=== PATIENT | male | born 1980 | race Caucasian/White ===

== ENCOUNTER → 2020-06-07 14:52 | Outpatient (BNVA) | payer BC, SELFPAY | PROVIDERS: PCP Internal Medicine; Visit Provider Internal Medicine Pulmonary Disease | DX: G47.33 Obstructive sleep apnea (adult) (pediatric) (principal) ==

== ENCOUNTER 2020-09-14 17:57 | Outpatient (REF) | payer BC, SELFPAY | END 2020-09-14 17:58 | disposition home or self-care (01) | LOC: HO.LNP 17:57 | PROVIDERS: Visit Provider Internal Medicine | DX: Z20.828 Contact with and (suspected) exposure to other viral communicable diseases (principal) | CPT/HCPCS: U0003 ==

== ENCOUNTER 2021-09-18 13:27 | Outpatient (REF) | payer BC, SELFPAY ==
[2021-09-18 13:49] LABS: COVID-19 Test Negative (Negative); IDNOW Serial# 9DD0AD1C
== END 2021-09-18 13:28 | disposition home or self-care (01) ==
LOC: HO.LNP 13:27
PROVIDERS: Visit Provider Internal Medicine
DX: Z20.822 Contact with and (suspected) exposure to COVID-19 (principal)
CPT/HCPCS: 87635

== ENCOUNTER 2021-10-01 12:19 | Outpatient (REF) | payer BC, SELFPAY ==
[2021-10-01 12:36] LABS: COVID-19 Test Positive (Negative)
== END 2021-10-01 12:20 | disposition home or self-care (01) ==
LOC: HO.LNP 12:19
PROVIDERS: Visit Provider Internal Medicine
DX: Z20.822 Contact with and (suspected) exposure to COVID-19 (principal)
CPT/HCPCS: 87635

== ENCOUNTER 2022-01-06 10:21 | Outpatient (REF) | payer BC, SELFPAY ==
--- NOTE | ~2022-01-06 | XR_ITS ---
EXAMINATION: XR CHEST CLINICAL INFORMATION: Cough and congestion COMPARISON: Previous chest x-ray November 2015 TECHNIQUE: 2 views of the chest were obtained. FINDINGS: The cardiac and mediastinal contours are normal. The lungs are clear. There is no pleural effusion or pneumothorax. Bony structures are unremarkable. XR/XR chest 2V IMPRESSION: Unremarkable examination.
== END 2022-01-06 10:22 | disposition home or self-care (01) ==
LOC: HO.XRAY 10:21
PROVIDERS: PCP Internal Medicine; Visit Provider Internal Medicine
DX: R05.9 Cough, unspecified (principal); R09.89 Other specified symptoms and signs involving the circulatory and respiratory systems
CPT/HCPCS: 71046

== ENCOUNTER 2022-01-22 12:05 | Outpatient (REF) | payer BC, SELFPAY ==
[2022-01-22 13:27] LABS: MANUAL DIFF FLAG NO
[2022-01-22 13:38] LABS: Basophils Absolute Auto 0.1 X10*3/uL (0.0-0.2); Basophils Percent Auto 1.2 % (0-2); Eosinophils Absolute Auto 0.1 X10*3/uL (0.0-0.4); Eosinophils Percent Auto 2.2 % (0-4); Hematocrit 45.2 % (42.0-52.0); Hemoglobin 15.9 g/dl (14.0-18.0); Imm Gran Abs Auto 0.01 X10*3/uL (0.00-0.03); Imm Gran Pct Auto 0.2 % (0.0-0.4); Lymphocytes Absolute Auto 2.2 X10*3/uL (1.2-4.9); Lymphocytes Percent Auto 43.5 % (20-40); Mean Corpuscular HGB Conc 35.2 g/dl (31.0-36.0); Mean Corpuscular Hemoglobin 32.1 pg (27.0-33.0); Mean Corpuscular Volume 91.3 fL (80.0-98.0); Mean Platelet Volume 11.4 fL (9.4-12.4); Monocytes Absolute Auto 0.5 X10*3/uL (0.1-1.2); Neutrophils Absolute Auto 2.2 x10*3/uL (2.0-8.3); Neutrophils Percent Auto 42.9 % (45-73); Platelet Count 294 X10*3/uL (160-400); Red Blood Count 4.95 X10*6/uL (4.60-5.80); Red Cell Distribution Width 11.7 % (11.0-16.0); White Blood Count 5.1 X10*3/uL (4.8-10.8)
[2022-01-22 13:43] LABS: Anion Gap 13 (12-20); Blood Urea Nitrogen 14 mg/dL (9-16); Calcium 10.3 mg/dL (8.4-10.2); Carbon Dioxide 31 mmol/L (22-29); Chloride 101 mmol/L (96-108); Estimated Glomerular Filt Rate > 60; Glucose Random 64 mg/dL (60-115); Potassium 4.7 mmol/L (3.3-5.1); Sodium 140 mmol/L (135-145)
[2022-01-22 13:56] LABS: Estimated Average Glucose 143 mg/dL; Hemoglobin A1c % 6.6 %
[2022-01-22 14:05] LABS: Syphilis Screen Nonreactive (Nonreactive)
[2022-01-22 14:37] LABS: Creatinine Urine 94.72 mg/dL; Microalbum/Creatinine Ratio Ur 5.2 ug/mg cr
[2022-01-22 19:03] LABS: CT PCR NOT DETECTED (Not Detect.); NG PCR NOT DETECTED (Not Detect.)
[2022-01-23 08:53] LABS: HIV AB/AG Nonreactive (Nonreactive); HIV Num 1 0.06 S/CO (0.00-0.99)
== END 2022-01-22 12:06 | disposition home or self-care (01) ==
LOC: HO.10HDL 12:05
PROVIDERS: Visit Provider Internal Medicine
DX: Z11.4 Encounter for screening for human immunodeficiency virus [HIV] (principal); Z11.3 Encounter for screening for infections with a predominantly sexual mode of transmission; E11.9 Type 2 diabetes mellitus without complications; Z79.4 Long term (current) use of insulin
CPT/HCPCS: 80048; 82043; 83036; 85025; 86780; 87389; 87491; 87591

== ENCOUNTER 2022-11-25 07:39 | Outpatient (REF) | payer OTHER, SELFPAY ==
[2022-11-25 10:46] LABS: MANUAL DIFF FLAG NO
[2022-11-25 10:55] LABS: Basophils Absolute Auto 0.1 X10*3/uL (0.0-0.2); Basophils Percent Auto 1.2 % (0-2); Eosinophils Absolute Auto 0.1 X10*3/uL (0.0-0.4); Eosinophils Percent Auto 2.6 % (0-4); Hemoglobin 17.1 g/dl (14.0-18.0); Imm Gran Abs Auto 0.01 X10*3/uL (0.00-0.03); Imm Gran Pct Auto 0.2 % (0.0-0.4); Lymphocytes Percent Auto 47.7 % (20-40); Mean Corpuscular HGB Conc 34.9 g/dl (31.0-36.0); Mean Corpuscular Hemoglobin 32.4 pg (27.0-33.0); Mean Corpuscular Volume 92.8 fL (80.0-98.0); Mean Platelet Volume 11.4 fL (9.4-12.4); Monocytes Absolute Auto 0.3 X10*3/uL (0.1-1.2); Neutrophils Absolute Auto 1.8 x10*3/uL (2.0-8.3); Neutrophils Percent Auto 41.3 % (45-73); Platelet Count 235 X10*3/uL (160-400); Red Blood Count 5.28 X10*6/uL (4.60-5.80); Red Cell Distribution Width 11.4 % (11.0-16.0); White Blood Count 4.3 X10*3/uL (4.8-10.8)
[2022-11-25 11:09] LABS: Appearance Urine Clear; Color Urine Dark Yellow; Glucose Urine UA >=1000 mg/dL (Negative); Leukocyte Esterase Urine Negative (Negative); Nitrite Urine Negative (Negative); Specific Gravity - Urine >= 1.030 (1.005-1.025); UMIC TRIGGER UA YES; Urine Blood Negative (Negative); Urine Ketones Trace mg/dL (Negative); Urine Protein Negative (Neg-Trace)
[2022-11-25 11:16] LABS: Bacteria Urine None Seen (None Seen); Hyaline Casts Urine 0-2 /LPF (0-2); RBC Urine 0-2 /HPF (0-2); Squamous Epithelial Cell Urine 0-2 /HPF (0-2); WBC Urine 0-5 /HPF (0-5)
[2022-11-25 11:24] LABS: Estimated Average Glucose 151 mg/dL; Hemoglobin A1c % 6.9 %
[2022-11-25 11:48] LABS: Alanine Aminotransferase 24 U/L (0-40); Albumin Level 4.3 g/dL (3.5-5.0); Alkaline Phosphatase 66 U/L (39-117); Anion Gap 14 (12-20); Aspartate Amino Transferase 24 U/L (5-37); Bilirubin Total 0.5 mg/dL (0.0-1.0); Blood Urea Nitrogen 12 mg/dL (9-16); Calcium 9.4 mg/dL (8.4-10.2); Carbon Dioxide 30 mmol/L (22-29); Chloride 103 mmol/L (96-108); Cholesterol 179 mg/dL; Estimated Glomerular Filt Rate > 60; Glucose Fasting 183 mg/dL (60-99); HDL Cholesterol 82 mg/dL; LDL Cholesterol Calculated 78 mg/dl; Potassium 4.7 mmol/L (3.3-5.1); Sodium 142 mmol/L (135-145); Total Protein 7.2 g/dL (6.5-8.0); Triglycerides 97 mg/dL
[2022-11-25 11:50] LABS: Creatinine Urine 171.84 mg/dL; Microalbum/Creatinine Ratio Ur 5.2 ug/mg cr
[2022-11-25 12:34] LABS: CT PCR NOT DETECTED (Not Detect.); NG PCR NOT DETECTED (Not Detect.)
[2022-11-26 05:25] LABS: ~HepC Num1 0.22 S/CO (0.00-0.79); ~Hepatitis C Antibody Nonreactive (Nonreactive)
[2022-11-27 18:23] LABS: HIV RNA PCR Qn Copies NOT DETECTED copies/mL (NOT DETECTED); HIV RNA PCR Qn Log Copies NOT DETECTED (NOT DETECTED)
[2022-11-30 20:43] LABS: Testosterone, Total 433 ng/dL (250-1100)
== END 2022-11-25 07:40 | disposition home or self-care (01) ==
LOC: HO.10HDL 07:39
PROVIDERS: Visit Provider Internal Medicine
DX: Z00.00 Encounter for general adult medical examination without abnormal findings (principal); E11.9 Type 2 diabetes mellitus without complications; Z79.4 Long term (current) use of insulin; Z11.4 Encounter for screening for human immunodeficiency virus [HIV]; Z20.2 Contact with and (suspected) exposure to infections with a predominantly sexual mode of transmission
CPT/HCPCS: 0353U; 36415; 80053; 80061; 81001; 81003; 82043; 83036; 84402; 84403; 85025; 86803; 87536

== ENCOUNTER 2023-06-08 10:21 | Outpatient (REF) | payer OTHER, SELFPAY ==
--- NOTE | ~2023-06-08 | XR_ITS ---
EXAMINATION: XR CHEST CLINICAL INFORMATION: Reason for Exam cough COMPARISON: Chest radiograph 01/06/2022 TECHNIQUE: 2 views of the chest FINDINGS: Lines and tubes: None. Clear lungs. No pleural effusion. No pneumothorax. Normal cardiomediastinal silhouette. XR/XR chest 2V IMPRESSION: * Clear lungs.
== END 2023-06-08 10:22 | disposition home or self-care (01) ==
LOC: HO.XRAY 10:21
PROVIDERS: PCP Internal Medicine; Visit Provider Internal Medicine
DX: R05.9 Cough, unspecified (principal)
CPT/HCPCS: 71046

== ENCOUNTER 2023-11-12 10:01 | Outpatient (REF) | payer OTHER, SELFPAY ==
[2023-11-12 11:38] LABS: MANUAL DIFF FLAG NO
[2023-11-12 11:47] LABS: Basophils Absolute Auto 0.1 X10*3/uL (0.0-0.2); Basophils Percent Auto 1.2 % (0-2); Eosinophils Absolute Auto 0.2 X10*3/uL (0.0-0.4); Eosinophils Percent Auto 3.1 % (0-4); Hematocrit 45.1 % (42.0-52.0); Hemoglobin 16.1 g/dl (14.0-18.0); Lymphocytes Absolute Auto 2.3 X10*3/uL (1.2-4.9); Lymphocytes Percent Auto 47.4 % (20-40); Mean Corpuscular HGB Conc 35.7 g/dl (31.0-36.0); Mean Corpuscular Hemoglobin 32.5 pg (27.0-33.0); Mean Corpuscular Volume 91.1 fL (80.0-98.0); Monocytes Absolute Auto 0.4 X10*3/uL (0.1-1.2); Monocytes Percent Auto 8.1 % (2-11); Neutrophils Absolute Auto 1.9 x10*3/uL (2.0-8.3); Neutrophils Percent Auto 40.2 % (45-73); Platelet Count 252 X10*3/uL (160-400); Red Blood Count 4.95 X10*6/uL (4.60-5.80); Red Cell Distribution Width 11.4 % (11.0-16.0); White Blood Count 4.8 X10*3/uL (4.8-10.8)
[2023-11-12 11:49] LABS: Estimated Average Glucose 146 mg/dL; Hemoglobin A1c % 6.7 % (<6.0)
[2023-11-12 11:59] LABS: Alanine Aminotransferase 23 U/L (0-40); Albumin Level 4.3 g/dL (3.5-5.0); Alkaline Phosphatase 72 U/L (39-117); Anion Gap 10 (12-20); Aspartate Amino Transferase 22 U/L (5-37); Bilirubin Total 0.5 mg/dL (0.0-1.0); Blood Urea Nitrogen 13 mg/dL (9-16); Calcium 9.5 mg/dL (8.4-10.2); Carbon Dioxide 30 mmol/L (22-29); Chloride 103 mmol/L (96-108); Cholesterol 181 mg/dL (<200); Estimated Glomerular Filt Rate > 60; Glucose Random 98 mg/dL (60-115); Potassium 4.1 mmol/L (3.3-5.1); Sodium 139 mmol/L (135-145); Total Protein 7.6 g/dL (6.5-8.0)
[2023-11-12 12:35] LABS: Creatinine Urine 184.84 mg/dL; Microalbum/Creatinine Ratio Ur 5.9 ug/mg cr (<30)
== END 2023-11-12 10:02 | disposition home or self-care (01) ==
LOC: HO.10HDL 10:01
PROVIDERS: Visit Provider Internal Medicine
DX: E11.9 Type 2 diabetes mellitus without complications (principal)
CPT/HCPCS: 36415; 80053; 82043; 82465; 82570; 83036; 85025

== ENCOUNTER 2024-01-28 11:45 | Outpatient (REF) | payer OTHER, SELFPAY ==
[2024-02-04 15:08] LABS: Testosterone, Free 51.5 pg/mL (35.0-155.0); Testosterone, Total 468 ng/dL (250-1100)
== END 2024-01-28 11:46 | disposition home or self-care (01) ==
LOC: HO.10HDL 11:45
PROVIDERS: Visit Provider Internal Medicine
DX: R53.83 Other fatigue (principal); E11.9 Type 2 diabetes mellitus without complications; Z79.4 Long term (current) use of insulin
CPT/HCPCS: 36415; 84402; 84403

== ENCOUNTER 2024-11-28 11:11 | Outpatient (REF) | payer OTHER, SELFPAY ==
[2024-11-28 15:06] LABS: Influenza A PCR NEGATIVE (Negative); Influenza B PCR NEGATIVE (Negative); Resp Syncy Virus RNA Qual PCR NEGATIVE (Negative); SARS COV2 PCR INHOUSE NEGATIVE (Negative)
== END 2024-11-28 11:12 | disposition home or self-care (01) ==
LOC: HO.LAB 11:11
PROVIDERS: Nurse Practitioner Family; PCP Internal Medicine
DX: J06.9 Acute upper respiratory infection, unspecified (principal)
CPT/HCPCS: 0241U

== ENCOUNTER 2024-11-28 11:11 | Outpatient (AMB) | payer OTHER, SELFPAY ==
--- NOTE | 2024-11-28 12:13 | MHC.OFFWIV ---
Intake Vital Signs 11/28/24 12:30 Weight 153 lb BP 140/80 H Blood Pressure Location Lt brachial Position Sitting Pulse 74 Pulse Source Pulse Oximeter Temp 98.4 F Temp Source Oral Pulse Oximetry (%) 93 Oxygen Delivery Method Room Air Intake Visit Reasons: EP sinus infection? Intake Note: Patient here for possible sinus infection, cough, low grade fevers, sneezing for about 2 weeks. Patient Tobacco Use Status: Never used Tobacco Allergies No Known Allergies Allergy (Verified 11/28/24 12:22) Do you need a note to return to daycare/school/sports/work: No HPI HPI Comments History of Present Illness Details 44 y/o male patient who presents to the walk in clinic with c/o URI symptoms for 2 weeks. Reports coughing, sneezing, chest congestion, low grade fevers and sinus pressure. He has been using Albuterol every 4 hours with good relief. [facility] Medical History (Updated 11/28/24 @ 12:24 by Karyna Garber NP) Acute respiratory disease Reactive airway disease Social History (Updated 06/07/20 @ 15:00 by Thania Victor MA) Patient Tobacco Use Status: Never used Tobacco Years Smoked: 12 years Review of Systems Const All systems reviewed & are unremarkable except as noted in HPI and below Physical Exam Vital Signs: Last Vital Signs Temp 98.4 F 11/28/24 12:30 Pulse 74 11/28/24 12:30 BP 140/80 H 11/28/24 12:30 Pulse Ox 93 11/28/24 12:30 Oxygen Delivery Method Room Air 11/28/24 12:30 Const General: cooperative and no acute distress Orientation/consciousness: patient oriented x3 HEENT Head: Yes normocephalic Ears: external ears normal and TM abnormal with fluid behind the TM bilateral General nose exam: Nasal discharge present Face and sinus: Yes sinuses nontender Mouth: moist mucous membranes Throat: Yes uvula midline Resp Effort & Inspection: normal respiratory effort and able to speak in complete sentences Auscultation: clear to auscultation bilaterally, no crackles, no rales, no rhonchi and no wheezes Cardio Heart sounds: S1 normal heart sound present and S2 normal heart sound present Neuro General: patient oriented x3 Assessment & Plan Assessment & Plan (1) Acute respiratory disease: Code(s): J06.9 - Acute upper respiratory infection, unspecified Plan: Ordered SARs Ordered Zpack Acetaminophne for pain/fever relief OTC cold relief remedies. Orders: Orders SARS-CoV2/FLU/RSV Today J06.9 - Acute upper respiratory infection, unspecified Medications: New azithromycin 500 mg PO DAILY 3 days 3 tabs 0RF J06.9 - Acute upper respiratory infection, unspecified Coding Level of Care Code Est Pt Level 4 (35686) Diagnoses Acute respiratory disease J06.9 Time Spent (min) 20
[2024-11-28 12:30] VITALS: BP 140/80; PULSE 74; TEMP 36.9; O2SAT 93
== END 2024-11-28 12:48 | disposition home or self-care (01) ==
PROVIDERS: PCP Internal Medicine; Visit Provider Nurse Practitioner Family
DX: J06.9 Acute upper respiratory infection, unspecified (principal)

== ENCOUNTER 2024-12-28 14:06 | Outpatient (AMB) | payer OTHER, SELFPAY ==
--- NOTE | 2024-12-28 14:15 | MHC.PC.OV ---
Vital Signs 12/28/24 14:38 Height 6 ft 1 in Weight 156 lb BMI 20.6 BP 122/76 Blood Pressure Location Lt brachial Position Sitting Pulse 76 Pulse Source Pulse Oximeter Temp 97.7 F Temp Source Axillary Pulse Oximetry (%) 99 Oxygen Delivery Method Room Air Intake Visit Reasons: Routine Talent Acquisition Coordinator Required: No Accompanied by: Self / Same As Patient Allergies No Known Allergies Allergy (Verified 12/28/24 14:18) Tobacco use date assessed: 12/28/24 Dental Screening Dental Screen Date: 12/28/24 Did you have a dental visit in the last 12 months?: Yes Did you have a dental problem in the last 6 months where you did not have access to dental care?: No [facility] Medical History (Updated 12/28/24 @ 15:04 by Jeff Macario MD) Major depression in complete remission Hyperlipidemia Type 1 diabetes mellitus Acute respiratory disease Reactive airway disease Family History (Updated 12/28/24 @ 14:43 by Alaina Nicholson MA) Mother No problems noted. Father No problems noted. Social History Housing: House Patient Tobacco Use Status: Former Tobacco user Years Smoked: 12 years e-Cigarette/Vaping Use: Former Use service: No Current occupational status: employed Cognitive needs: No Hearing needs: No Vision needs: Yes (reading glasses) Questionnaire PHQ-9 Over the last 2 weeks, how often have you been bothered by any of the following problems? 1. Little interest or pleasure in doing things: not at all 2. Feeling down, depressed, or hopeless: not at all 3. Trouble falling or staying asleep, or sleeping too much: not at all 4. Feeling tired or having little energy: not at all 5. Poor appetite or overeating: not at all 6. Feeling bad about yourself - or that you are a failure or have let yourself or your family down: not at all 7. Trouble concentrating on things, such as reading the newspaper or watching television: not at all 8. Moving or speaking so slowly that other people could have noticed. Or the opposite - being so fidgety or restless that you have been moving around a lot more than usual: not at all 9. Thoughts that you would be better off or of hurting yourself in some way: not at all Total score: 0 Depression Screening Interpretation: Negative Depression Screening Done: Yes Source: Developed by Drs. Haja Hearn, Racquel Duran, Miguel Morton and colleagues, with an educational luisa from [employer]. Thrive Questionnaire Date Thrive assessed: 12/28/24 I am a: Patient Within the past 12 months, did the food you bought not last and you didn't have the money to get more?: Never true Within the past 12 months, did you worry whether your food would run out before you got money to buy more?: Never true Do you have trouble paying for medicines?: No Do you have trouble getting transportation to medical appointments?: No Do you have trouble paying your heating and electricity bill?: No Do you have trouble taking care of your child, family member or friend?: No Do you have trouble with day-to-day activities such as bathing, preparing meals, shopping, managing finances, etc.?: No Are you currently unemployed and looking for a job?: No Are you interested in more education?: No Currently or been in a relationship where the following occur: No concerns reported THRIVE Score: 0 AUDIT C Alcohol Use Questionnaire (AUDIT-C) 1. How often do you have a drink containing alcohol?: Monthly or less 2. How many drinks containing alcohol do you have on a typical day when you are drinking?: 1 or 2 3. How often do you have six or more drinks on one occasion?: Less than monthly Total Score: 2 STU-7 AMB Questionnaire STU-7 Date STU - 7 assessed: 12/28/24 Feeling nervous, anxious, or on edge: 0 = Not at all Not being able to stop or control worryin = Not at all Worrying too much about different things: 0 = Not at all Trouble relaxin = Not at all Being so restless that it is hard to sit still: 0 = Not at all Becoming easily annoyed or irritable: 0 = Not at all Feeling afraid as if something awful might happen: 0 = Not at all Total STU-7 score (0-4 normal; 5-9 mild; 10-14 moderate; 15-21 severe): 0 Source: Developed by Racquel Marroquin Kurt Kroenke and colleagues, with an educational luisa from [employer]. Physical exam (Primary Care) Vital Signs: Last Vital Signs Temp 97.7 F 12/28/24 14:38 Pulse 76 12/28/24 14:38 BP 122/76 12/28/24 14:38 Pulse Ox 99 12/28/24 14:38 Oxygen Delivery Method Room Air 12/28/24 14:38 Care Plan Goal for BP management: BP in range BMI result Body Mass Index 20.6 Tobacco/Smoking Status: Tobacco use Status Tobacco use date assessed 12/28/24 12/28/24 14:19 Patient Tobacco Use Status Former Tobacco user 12/28/24 14:44 e-Cigarette/Vaping Use Former Use 12/28/24 14:44 PHQ-9: PHQ-9 Score PHQ-9: Total score 0 12/28/24 14:45 Depression Screening Interpretation: Negative Thrive Assessment: Date of Thrive Assessment Date Thrive assessed 12/28/24 12/28/24 14:19 Currently or been in a relationship where the following occur: No concerns reported Coding Level of Care Code New Pt Level 4 (44952) Complex EM visit Add On G2211 Diagnoses Type 1 diabetes mellitus E10.9 Hyperlipidemia E78.5 Major depression in complete remission F32.5 Assessment & Plan Assessment & Plan (1) Type 1 diabetes mellitus: Code(s): E10.9 - Type 1 diabetes mellitus without complications Category: Medical Plan: Does not see an temperature logging operator. Suggested SHANE inhibitor, he will consider it. Prescriptions filled (2) Hyperlipidemia: Code(s): E78.5 - Hyperlipidemia, unspecified Category: Medical Plan: Continue use of statins (3) Major depression in complete remission: Code(s): F32.5 - Major depressive disorder, single episode, in full remission Category: Medical Plan: Continue current medications Plan History of Present Illness The patient is a 44-year-old male presenting with Type 1 Diabetes Mellitus management and a new skin rash. He has a long history of diabetes, using both short and long-acting insulin to manage his condition. The last recorded hemoglobin A1c was 6.7% approximately one year ago. Currently, his insulin regimen involves a daily 30-unit dose of long-acting insulin and involves a sliding scale for short-acting insulin with meals. Additionally, he has dyslipidemia managed with simvastatin. Family medical history is notable for diabetes. The patient noticed a newly developed mildly itchy rash near the underarm area today and suspects irritation from deodorant use, though no recent changes to deodorant products have been made. 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 - Exercise: Engaged in [employer] until August, planning to resume shortly. - Smoking: Former smoker. - Functional Status: Fully functional, able to perform daily activities. - Nutrition: Adapts insulin dosing based on meal carbohydrate content. Review of Systems - Endocrine: Reports Type 1 Diabetes Mellitus. - Dermatologic: Reports mildly itchy rash near the underarm area. - Eyes: Denies issues; sees an eye doctor regularly for retinal scans. - Musculoskeletal: Denies recent exercise; plans to resume CrossFit. - Social: Former smoker; denies current tobacco use. - Respiratory: Denies low blood sugar episodes; well-managed. Physical Exam General: Cooperative and healthy appearing Nutritional Appearance: Well nourished Orientation/consciousness: Patient oriented x3 Limitations: No limitations Head: Normal to inspection General: Appearance normal, both eyes and all related structures Neck: Normal visual inspection Chest: Normal palpation of entire chest wall Respiratory: N ormal respiratory effort Neurology: Patient oriented x3, fully functional, able to do all activities Results - Labs: Hemoglobin A1c last measured at 6.7% approximately one year ago. - Screenings: Cologuard was negative. Plan I will continue the patient's current management plan for Type 1 Diabetes with his established insulin routine, refilling prescriptions as needed. I am prescribing simvastatin for dyslipidemia. An updated hemoglobin A1c and microalbumin urine test will be conducted to evaluate kidney function. For the rash, I will provide clotrimazole cream and recommend careful hygiene. Given the new sexual partner, a full STD panel will be ordered. Regular follow-up on blood glucose control and continuous eye examinations are crucial for ongoing management. Patient was informed and verbally consented to the use of an ambient scribe for clinic note documentation during this visit. Discussion Notes I discussed maintaining his current insulin regimen for his Type 1 Diabetes, emphasizing consistent blood glucose monitoring. We addressed the management of dyslipidemia with simvastatin and the need for ongoing monitoring of his kidney function. Given his new rash, I provided a prescription for clotrimazole cream and explained its application. I advised overall good hygiene practices. For preventive care, given he is seeing a new sexual partner, I recommended a complete STD screening to include tests for gonorrhea, chlamydia, syphilis, and HIV to ensure his health status. We discussed the importance of regular eye examinations and the continuation of exercise in doo as he had previously engaged. Cologuard was noted to be negative. Patient Instructions - Continue current insulin regimen and monitor blood sugar levels regularly. - Use the prescribed clotrimazole cream on the rash area. - Undergo the recommended STD screening tests. - Maintain regular eye check-ups and engage in physical activity as tolerated. - Stay up-to-date with prescribed medications and refills. - Report any changes in symptoms or new concerns immediately. Orders: Orders Complete Blood Count no Diff Today E10.9 - Type 1 diabetes mellitus without complications, E78.5 - Hyperlipidemia, unspecified, F32.5 - Major depressive disorder, single episode, in full remission, Z11.9 - Encounter for screening for infectious and parasitic diseases, unspecified Liver Panel Today E10.9 - Type 1 diabetes mellitus without complications, E78.5 - Hyperlipidemia, unspecified, F32.5 - Major depressive disorder, single episode, in full remission, Z11.9 - Encounter for screening for infectious and parasitic diseases, unspecified HIV Ab/Ag Today E10.9 - Type 1 diabetes mellitus without complications, E78.5 - Hyperlipidemia, unspecified, F32.5 - Major depressive disorder, single episode, in full remission, Z11.9 - Encounter for screening for infectious and parasitic diseases, unspecified Basic Metabolic Panel Today E10.9 - Type 1 diabetes mellitus without complications, E78.5 - Hyperlipidemia, unspecified, F32.5 - Major depressive disorder, single episode, in full remission, Z11.9 - Encounter for screening for infectious and parasitic diseases, unspecified Lipid Panel Today E10.9 - Type 1 diabetes mellitus without complications, E78.5 - Hyperlipidemia, unspecified, F32.5 - Major depressive disorder, single episode, in full remission, Z11.9 - Encounter for screening for infectious and parasitic diseases, unspecified Thyroid Stimulating Hormone Today E10.9 - Type 1 diabetes mellitus without complications, E78.5 - Hyperlipidemia, unspecified, F32.5 - Major depressive disorder, single episode, in full remission, Z11.9 - Encounter for screening for infectious and parasitic diseases, unspecified Hemoglobin A1c Today E10.9 - Type 1 diabetes mellitus without complications, E78.5 - Hyperlipidemia, unspecified, F32.5 - Major depressive disorder, single episode, in full remission, Z11.9 - Encounter for screening for infectious and parasitic diseases, unspecified Microalbumin, Random (w Creat) Today E10.9 - Type 1 diabetes mellitus without complications, E78.5 - Hyperlipidemia, unspecified, F32.5 - Major depressive disorder, single episode, in full remission, Z11.9 - Encounter for screening for infectious and parasitic diseases, unspecified UA and rflx microscopic Today E10.9 - Type 1 diabetes mellitus without complications, E78.5 - Hyperlipidemia, unspecified, F32.5 - Major depressive disorder, single episode, in full remission, Z11.9 - Encounter for screening for infectious and parasitic diseases, unspecified CT NG by PCR Today E10.9 - Type 1 diabetes mellitus without complications, E78.5 - Hyperlipidemia, unspecified, F32.5 - Major depressive disorder, single episode, in full remission, Z11.9 - Encounter for screening for infectious and parasitic diseases, unspecified Syphilis Screen Today E10.9 - Type 1 diabetes mellitus without complications, E78.5 - Hyperlipidemia, unspecified, F32.5 - Major depressive disorder, single episode, in full remission, Z11.9 - Encounter for screening for infectious and parasitic diseases, unspecified Medications: New tadalafil (Cialis) 5 mg PO DAILY 30 tabs 0RF insulin glargine 30 units (0.3 mL) subcut BEDTIME 15 mL 1RF insulin glargine-yfgn (Semglee (insulin glargine-yfgn)) 30 units (0.3 mL) subcut QPM 27 mL 1RF 90 days
[2024-12-28 14:38] VITALS: BP 122/76; PULSE 76; TEMP 36.5; O2SAT 99; BMI 20.6
--- OUTSIDE RECORDS SUMMARY | 2024-12-28 16:57 | XMS_ITS | Clinical Summary ---
Author Organization [address] [place] [address] Address [address] [place] [address] Phone Care Team Providers Care Compliance Clerk Name Role Phone Clair Arias Primary Care Provider + Allergies Active Allergy Reactions Criticality Noted Date Comments Pollen Extracts 11/22/2024 Medications insulin aspart (NovoLOG U-100 Insulin aspart) 100 unit/mL injection Inject 100 Units under the skin. 05/19/2021 Active insulin lispro 100 unit/mL injection 05/21/2024 Active simvastatin (ZOCOR) 10 mg tablet Take 1 tablet (10 mg total) by mouth. 05/22/2021 Active buPROPion XL (WELLBUTRIN XL) 150 mg 24 hr tablet 08/26/2024 Active loratadine (CLARITIN) 10 mg tablet Take 1 tablet (10 mg total) by mouth 1 (one) time each day. Active Active Problems Problem Noted Date Diagnosed Date Dupuytren's contracture of hand 11/22/2024 Diabetes 1.5, managed as type 1 (CMS/[facility] V24, CM S/HCC V28) 05/24/2021 Dupuytren's contracture 05/24/2021 Dysthymia 04/23/2015 Encounters Date Type Department Care Team Description 11/22/2024 2:30 PM EDT Office Visit Orthopedic Surgery - [address] [place] [address] Florence Walsh MD Dupuytren's contracture of hand (Primary Dx) from Last 3 Months Social History Tobacco Use Types Packs/Day Years Used Date Smoking Tobacco: Never Smokeless Tobacco: Never Alcohol Use Standard Drinks/Week Comments Yes 0 (1 standard drink = 0.6 oz pur e alcohol) Sex and Gender Information Value Date Recorded Sex Assigned at Not on file Legal Sex Male 11:29 AM EST Gender Identity Not on file Sexual Orientation Not on file Obstetrics History Last Filed Vital Signs Vital Sign Reading Time Taken Comments Blood Pressure - - Pulse - - Temperature - - Respiratory Rate - - Oxygen Saturation - - Inhaled Oxygen Concentration - - Weight 65.8 kg (145 lb) 11/22/2024 2:34 PM EDT Height 167.6 cm (5' 6 ) 11/22/2024 2:34 PM EDT Body Mass Index 23.4 11/22/2024 2:34 PM EDT Plan of Treatment Health Maintenance Due Date Last Done Comments Diabetes: Annual GFR (Glomerular Filtration Rate) 1979 Diabetes: Annual Foot Exam 1989 Diabetes: Annual Retina Eye Exam 1989 DTaP,Tdap,and Td Vaccines (1 - Tdap) 1998 Hepatitis B Vaccines (1 of 3 - 19+ 3-dose series) 1998 Cholesterol Screening (Lipid Panel) 08/05/2022 Colorectal Cancer Screening: Colonoscopy 08/05/2022 Depression Screening 08/05/2022 HIV Screening 08/05/2022 Hepatitis C Screening 08/05/2022 Social Influencers of Health Screening 08/05/2022 Diabetes: Annual Urine Albumin-Creatinine Ratio (uACR) 08/19/2022 Diabetes: Blood Sugar Control Test (HGBA1C) 08/19/2022 COVID-19 Vaccine Completed 06/24/2024, , 07/08/2022, Additional history exists Influenza Vaccine Completed 06/24/2024, , 07/08/2022, Additional history exists Pneumococcal Vaccine: Pediatrics (0 to 5 Years) and At-Risk Patients (6 to 64 Years) Completed 06/24/2024 HIB Vaccines Aged Out No longer eligi ble based on patient's age to complete this topic HPV Vaccines Aged Out No longer eligi ble based on patient's age to complete this topic Hepatitis A Vaccines Aged Out No long er eligible based on patient's age to complete this topic IPV Vaccines Aged Out No longer eligi ble based on patient's age to complete this topic MMR Vaccines Aged Out No longer eligi ble based on patient's age to complete this topic Meningococcal ACWY Vaccine Aged Out N o longer eligible based on patient's age to complete this topic Meningococcal B Vaccine Aged Out No l onger eligible based on patient's age to complete this topic RSV Immunization Patients Under 20 months Aged Out No longer eligible based on patient's age to complete this topic Varicella Vaccines Aged Out No longer eligible based on patient's age to complete this topic Insurance [employer] Care Teams Compliance Clerk Relationship Specialty Start Date End Date Clair Arias PA [address] [place] [address] PCP - General 12/01/22
== END 2024-12-28 15:02 | disposition home or self-care (01) ==
LOC: HO.HMCHD 14:06
PROVIDERS: PCP Internal Medicine; Visit Provider Internal Medicine
DX: E10.9 Type 1 diabetes mellitus without complications (principal); E78.5 Hyperlipidemia, unspecified; F32.5 Major depressive disorder, single episode, in full remission

== ENCOUNTER → 2024-12-28 14:06 | Outpatient (BNVA) | payer OTHER, SELFPAY | PROVIDERS: PCP Internal Medicine; Visit Provider Internal Medicine | DX: Z13.89 Encounter for screening for other disorder (principal) ==

== ENCOUNTER 2024-12-29 09:03 | Outpatient (REF) | payer OTHER, SELFPAY ==
--- OUTSIDE RECORDS SUMMARY | 2024-12-29 09:46 | XMS_ITS | Clinical Summary ---
Author Organization [address] [place] [address] Address [address] [place] [address] Phone Care Team Providers Care Information Writer Name Role Phone Clair Arias Primary Care [...] 11/22/2024 Diabetes 1.5, managed as type 1 (CMS/[facility] V24, CM S/HCC V28) 05/24/2021 Dupuytren's contracture 05/24/2021 Dysthymia 04/23/2015 Encounters Date Type Department Care Team Description 11/22/2024 2:30 PM EDT Office Visit Orthopedic Surgery - [address] [place] [address] Florence Walsh MD Dupuytren's contracture [...] complete this topic Insurance [employer] Care Teams Information Writer Relationship Specialty Start Date End Date Clair Arias PA [address] [place] [address] PCP - General 12/01/22
[2024-12-29 11:13] LABS: Hematocrit 41.9 % (42.0-52.0); Mean Corpuscular HGB Conc 35.8 g/dl (31.0-36.0); Mean Corpuscular Hemoglobin 32.8 pg (27.0-33.0); Mean Corpuscular Volume 91.7 fL (80.0-98.0); Mean Platelet Volume 10.7 fL (9.4-12.4); Platelet Count 220 X10*3/uL (160-400); Red Blood Count 4.57 X10*6/uL (4.60-5.80); Red Cell Distribution Width 11.4 % (11.0-16.0); White Blood Count 4.7 X10*3/uL (4.8-10.8)
[2024-12-29 11:20] LABS: Estimated Average Glucose 160 mg/dL; Hemoglobin A1C 210.5434 umol/L; Hemoglobin A1c % 7.2 % (<6.0)
[2024-12-29 11:22] LABS: Appearance Urine Clear; Color Urine Dark Yellow; Glucose Urine UA Negative (Negative); Leukocyte Esterase Urine Negative (Negative); Nitrite Urine Negative (Negative); PH 8.5 (5.0-9.0); Urine Blood Negative (Negative); Urine Ketones Negative (Negative); Urine Protein Trace mg/dL (Neg-Trace)
[2024-12-29 11:57] LABS: Creatinine Urine 127.68 mg/dL; Microalbumin Urine < 5.0 mg/L
[2024-12-29 12:06] LABS: Alanine Aminotransferase 37 U/L (0-40); Albumin Level 4.1 g/dL (3.5-5.0); Alkaline Phosphatase 79 U/L (39-117); Anion Gap 9 (12-20); Aspartate Amino Transferase 37 U/L (5-37); Bilirubin Direct 0.3 mg/dL (0.0-0.5); Bilirubin Total 0.6 mg/dL (0.0-1.0); Blood Urea Nitrogen 15 mg/dL (9-16); Calcium 9.5 mg/dL (8.4-10.2); Carbon Dioxide 34 mmol/L (22-29); Chloride 103 mmol/L (96-108); Cholesterol 185 mg/dL (<200); Estimated Glomerular Filt Rate > 60; Glucose Random 76 mg/dL (60-115); HDL Cholesterol 97 mg/dL (>40); LDL Cholesterol Calculated 68 mg/dL (<100); Potassium 4.2 mmol/L (3.3-5.1); Sodium 142 mmol/L (135-145); Total Protein 7.3 g/dL (6.5-8.0); Triglycerides 104 mg/dL (<150)
[2024-12-29 12:09] LABS: HIV AB/AG Nonreactive (Nonreactive); HIV Num 1 0.07 S/CO (0.00-0.99); Syphilis Screen Nonreactive (Nonreactive)
[2024-12-29 12:12] LABS: Thyroid Stimulating Hormone 0.82 uIU/mL (0.32-4.0)
[2024-12-29 13:09] LABS: CT PCR NOT DETECTED (Not Detect.); NG PCR NOT DETECTED (Not Detect.)
== END 2024-12-29 09:04 | disposition home or self-care (01) ==
LOC: HO.10HDL 09:03
PROVIDERS: Visit Provider Internal Medicine
DX: E10.9 Type 1 diabetes mellitus without complications (principal); E78.5 Hyperlipidemia, unspecified; F32.5 Major depressive disorder, single episode, in full remission; Z11.9 Encounter for screening for infectious and parasitic diseases, unspecified
CPT/HCPCS: 80048; 80061; 80076; 81003; 82570; 83036; 84443; 85027; 86780; 87389; 87491; 87591

== ENCOUNTER 2025-06-29 10:22 | Outpatient (AMB) | payer OTHER, SELFPAY ==
--- NOTE | 2025-06-29 10:26 | A.OFFPC_ITS ---
Vital Signs 06/29/25 10:32 Height 6 ft 0.99 in Weight 154 lb BMI 20.3 BP 128/74 Blood Pressure Location Lt brachial Position Sitting Respiration 18 Pulse 78 Pulse Source Pulse Oximeter Temp 98.6 F Temp Source Temporal Artery Scan Pulse Oximetry (%) 96 Oxygen Delivery Method Room Air Intake Visit Reasons: Physical Secret Code Expert Required: No Accompanied by: Self / Same As Patient Allergies No Known Allergies Allergy (Verified 06/29/25 10:26) Medication List - Last Reconciled 06/29/25 by Eliot Lackey MD albuterol sulfate 90 mcg/actuation 1 puff inhalation BID PRN bupropion HCl SR 150 mg PO BID insulin glargine (Lantus U-100 Insulin) 30 units (0.3 mL) subcut QPM 90 days insulin glargine-yfgn (Semglee (insulin glargine-yfgn)) 30 units (0.3 mL) subcut QPM insulin syr/ndl U100 half dilip As directed insulin syringe,safety needle (BD SafetyGlide Insulin Syringe) As directed simvastatin 10 mg PO DAILY Tobacco use date assessed: 12/28/24 Dental Screening Dental Screen Date: 12/28/24 HPI HPI Comments History of Present Illness Details The patient is a 45-year-old male presenting with management of Type 1 Diabetes Mellitus and routine follow-up. The patient has a longstanding history of Type 1 Diabetes Mellitus diagnosed during childhood. He currently manages his diabetes with insulin therapy, specifically taking short-acting insulin for meals and long-acting insulin, Lantus, once daily at 11:30 AM. He acknowledges variability in his blood glucose levels, noting they can fluctuate significantly; however, his Hemoglobin A1c levels are typically well controlled, with the most recent being 7.2%. There is an understanding that blood sugar control could be better managed, ideally lowering the A1c closer to 6-6.5%. The patient prefers using his current regimen and explicitly states a reluctance to switch to an insulin pump or continuous glucose monitoring device, despite discussions regarding the disadvantages of daily blood sugar fluctuations on long-term health. In addition to the diabetes management, the patient reports a stable history of depression, which is managed with bupropion. He notes a consistent benefit from bupropion, explaining it keeps his mood stable. He also has a history of hyperlipidemia, managed with simvastatin, with recent lab work showing satisfactory lipid levels including an LDL of 68 mg/dL. 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 Does not engage in sales. - Housing: Lives alone - Exercise: Regularly exercises, attends the gym after work - Tobacco Use: Former smoker, smoked fro m ages 17 to 29, currently does not smoke - Alcohol Use: Not discussed - Recreational Drug Use: Not discussed [facility] Medical History (Updated 06/29/25 @ 10:47 by Eliot Lackey MD) Major depression in complete remission Hyperlipidemia Type 1 diabetes mellitus Acute respiratory disease Reactive airway disease Family History (Updated 12/28/24 @ 14:43 by Alaina Nicholson MA) Mother No problems noted. Father No problems noted. Social History Housing: House Patient Tobacco Use Status: Former Tobacco user Years Smoked: 12 years e-Cigarette/Vaping Use: Former Use service: No Current occupational status: employed Current occupation: [employer] Cognitive needs: No Hearing needs: No Vision needs: Yes (reading glasses) Questionnaire Thrive Questionnaire Date Thrive assessed: 12/28/24 STU-7 AMB Questionnaire STU-7 Date STU - 7 assessed: 12/28/24 Source: Developed by Drs. Haja Hearn, Racquel Duran, Miguel Morton and colleagues, with an educational luisa from [employer]. Review of Systems Narrative - Endocrine: Reports variability in blood glucose levels - Respiratory: Denies routine use of albuterol inhaler, only uses during colds or infections - Gastrointestinal: Denies abdominal pain - General: Denies current issues with eating or bowel movements - Psychiatric: Reports stable mood with bupropion - Cardiovascular: Denies symptoms not discussed All systems reviewed & are unremarkable except as reviewed in HPI and above Physical exam (Primary Care) Vital Signs: Last Vital Signs Temp 98.6 F 06/29/25 10:32 Pulse 78 06/29/25 10:32 Resp 18 06/29/25 10:32 BP 128/74 06/29/25 10:32 Pulse Ox 96 06/29/25 10:32 Oxygen Delivery Method Room Air 06/29/25 10:32 BMI result Body Mass Index 20.3 Tobacco/Smoking Status: Tobacco use Status Tobacco use date assessed 12/28/24 06/29/25 10:28 Patient Tobacco Use Status Former Tobacco user 06/29/25 10:28 e-Cigarette/Vaping Use Former Use 06/29/25 10:28 Thrive Assessment: Date of Thrive Assessment Date Thrive assessed 12/28/24 06/29/25 10:28 Narrative General: Alert and oriented, Well nourished, No acute distress. Eye: Pupils are equal, round and reactive to light, Intact accommodation, Extraocular movements are intact, Normal conjunctiva, Vision unchanged. HENT: Normocephalic, Atraumatic, Tympanic membranes are clear, Normal hearing, Oral mucosa is moist, No pharyngeal erythema, Ear canals patent. Respiratory: Lungs CTA bilaterally, No wheeze, Respirations are non-labored. Cardiovascular: Regular rate, Regular rhythm, S1 auscultated, S2 auscultated, No murmur, Good pulses equal in all extremities, Normal peripheral perfusion, No edema. Gastrointestinal: Soft, Non-tender, Non-distended, Normal bowel sounds, No organomegaly. Musculoskeletal: Normal range of motion, Normal strength, No tenderness, No swelling, No deformity, Normal gait. Integumentary: Warm, Dry, [place], Intact. Neurologic: Alert, Oriented, Normal sensory, Normal motor function, No focal defects, Cranial Nerves II-XII are grossly intact, Normal deep tendon reflexes. Psychiatric: Cooperative, Appropriate mood & affect, Normal judgment. Coding Level of Care Code Est Pt Level 4 (47874) Complex EM visit Add On G2211 Diagnoses Type 1 diabetes mellitus without complication E10.9 Diabetes mellitus complication status: without complication Reactive airway disease without complication, unspecified asthma severity, unspecified whether persistent J45.909 Asthma severity: unspecified severity Asthma persistence: unspecified Asthma complication type: uncomplicated Other hyperlipidemia E78.49 Hyperlipidemia type: other hyperlipidemia Recurrent major depressive disorder, in full remission F33.42 Major depression recurrence: recurrent Assessment & Plan Assessment & Plan (1) Type 1 diabetes mellitus: Comment: - The patient manages diabetes with short-acting insulin and Lantus. Current regimen remains (Lantus & Semglee), emphasizing the need to lower A1c closer to 6-6.5%. - Patient discussed concerns about previous nighttime hypoglycemia; alteration to insulin timing has been helpful. - Considerations for insulin pump/CGM were declined; to proceed with current routine. - Plan to reassess A1c with lab today and revisit in six months. Code(s): E10.9 - Type 1 diabetes mellitus without complications Category: Medical Qualifiers: Diabetes mellitus complication status: without complication Qualified Code(s): E10.9 - Type 1 diabetes mellitus without complications (2) Reactive airway disease: Comment: - Continue Albuterol PRN Code(s): J45.909 - Unspecified asthma, uncomplicated Category: Medical Qualifiers: Asthma severity: unspecified severity Asthma persistence: unspecified Asthma complication type: uncomplicated Qualified Code(s): J45.909 - Unspecified asthma, uncomplicated (3) Hyperlipidemia: Comment: - Continued management with simvastatin; recent LDL levels satisfactory. Code(s): E78.5 - Hyperlipidemia, unspecified Category: Medical Qualifiers: Hyperlipidemia type: other hyperlipidemia Qualified Code(s): E78.49 - Other hyperlipidemia (4) Major depression in complete remission: Comment: - Continued management with bupropion beneficial in stabilizing mood. Code(s): F32.5 - Major depressive disorder, single episode, in full remission Category: Medical Qualifiers: Major depression recurrence: recurrent Qualified Code(s): F33.42 - Major depressive disorder, recurrent, in full remission Plan: Health Maintenance: - Plan for annual Hemoglobin A1c reassessment - Encouragement of exercise and diet plans to maintain current cholesterol levels and reduce risks related to Type 1 Diabetes Mellitus Patient was informed and verbally consented to the use of an ambient scribe for clinic note documentation during this visit. Plan I discussed with the patient the necessity to maintain optimal control of his diabetes to prevent long-term complications. The patient expressed satisfaction with his current regimen and prefers a non-invasive approach, declining to switch to an insulin pump or continuous glucose monitoring device. We talked about past issues with nocturnal hypoglycemia and adjustments made to avoid this. Continued management of depression with bupropion is yielding stable results for the patient. We discussed the patient's lipid levels and their man agement with simvastatin. Follow-up for a Hemoglobin A1c today and a six-month review has been planned. Orders: Orders Hemoglobin A1c Today E10.9 - Type 1 diabetes mellitus without complications Patient Instructions: - Continue current insulin regimen as discussed. - Monitor blood glucose levels as per your usual routine. - Take bupropion and simvastatin as prescribed. - Return for A1c testing today and follow up in six months. - Continue exercise routine and healthy diet.
[2025-06-29 10:32] VITALS: BP 128/74; PULSE 78; RESP 18; TEMP 37; O2SAT 96; BMI 20.3
--- OUTSIDE RECORDS SUMMARY | 2025-06-29 12:21 | XMS_ITS | Clinical Summary ---
Author Organization [address] [place] [address] Address [address] [place] [address] Phone Care Team Providers Care Operating Room Assistant Name Role Phone Clair Arias Primary Care [...] Diabetes 1.5, managed as type 1 (CMS/[facility] V24, CM S/[facility] V28) 05/24/2021 Dupuytren's contracture 05/24/2021 Dysthymia 04/23/2015 Social History Tobacco Use Types Packs/Day Years [...] Health Maintenance Due Date Last Done Comments Colorectal Cancer Screening: Colonoscopy 1979 Diabetes: Annual GFR (Glomerular Filtration Rate) 1979 Diabetes: Annual Foot Exam 1989 Diabetes: Annual Retina Eye Exam 1989 DTaP,Tdap,and Td Vaccines (1 - Tdap) 1998 Hepatitis A Vaccines (1 of 2 - Risk 2-dose series) 1998 Hepatitis B Vaccines (1 of 3 - 19+ 3-dose series) 1998 Cholesterol Screening (Lipid Panel) 08/05/2022 HIV Screening 08/05/2022 Hepatitis C Screening 08/05/2022 Social Influencers of Health Screening 08/05/2022 Diabetes: Annual Urine Albumin-Creatinine Ratio (uACR) 08/19/2022 Diabetes: Blood Sugar Control Test (HGBA1C) 08/19/2022 Depression Screening 09/07/2024 Influenza Vaccine (#1) 2025 , 07/06/2023, 07/08/2022, Additional history exists RSV Immunization Adult Patients (1 - 1-dose 75+ series) 2054 COVID-19 Vaccine Completed 06/24/2024, , 07/08/2022, Additional history exists Pneumococcal Vaccine: Pediatrics (0 to 5 Years) and At-Risk Patients (6 to 49 Years) Completed 06/24/2024 HIB Vaccines Aged Out [...] complete this topic Insurance [employer] Care Teams Operating Room Assistant Relationship Specialty Start Date End Date Clair Arias PA [address] [place] [address] PCP - General 12/01/22
== END 2025-06-29 10:48 | disposition home or self-care (01) ==
LOC: HO.HMCHD 10:22
PROVIDERS: PCP Internal Medicine; Visit Provider Student in an Organized Health Care Education/Training Program
DX: E10.9 Type 1 diabetes mellitus without complications (principal); J45.909 Unspecified asthma, uncomplicated; E78.49 Other hyperlipidemia; F33.42 Major depressive disorder, recurrent, in full remission

== ENCOUNTER 2025-06-29 10:56 | Outpatient (REF) | payer OTHER, SELFPAY | END 2025-06-29 10:57 | disposition home or self-care (01) | LOC: HO.10HDL 10:56 | PROVIDERS: Visit Provider Student in an Organized Health Care Education/Training Program | DX: E10.9 Type 1 diabetes mellitus without complications (principal) | CPT/HCPCS: 36415; 83036 ==